=== PATIENT | female | born 1990 | race Caucasian/White ===

== ENCOUNTER 2022-05-05 12:39 | Emergency (ER) | payer OTHER, SELFPAY ==
--- NOTE | 2022-05-05 12:42 | ED.FEMALEGU ---
HPI - Female Genitourinary General Chief complaint: Urogenital-Female Stated complaint: Urinary Problem Time Seen by Provider: 05/05/22 12:42 History of Present Illness HPI Narrative: patient is a 31-year-old female who presents to the Urgent Care with complaints of a possible UTI. Patient states she has had decreased output, foul smelling urine and dark urine for approximately 3 weeks. Patient was last treated for UTI on January 04. Denies any nausea, vomiting or abdominal pain. Patient states that she had a fever last night and took ibuprofen. No other acute complaints. No acute distress noted. Patient aware of the plan of care. Some parts of this dictation were generated by voice recognition software and may contain typographical and/or grammatical inaccuracies. Related Data Allergies Allergy/AdvReac Type Severity Reaction Status Date / Time cefixime Allergy Unknown Rash Verified 08/23/15 14:45 ziprasidone Allergy Unknown Rash Verified 08/23/15 14:45 Review of Systems Review of Systems: CONSTITUTIONAL: Denies fever, chills, or sweats. EYES: Denies visual changes, redness, or discharge. ENT: Denies rhinorrhea, congestion, sore throat, or otalgia. CARDIOVASCULAR: Denies chest pain, palpitations, or edema. RESPIRATORY: Denies cough or dyspnea. GASTROINTESTINAL: Denies abdominal pain, nausea, vomiting, or diarrhea. GENITOURINARY: Reports of decreased urinary output, foul smelling and dark urine SKIN: Denies rash or itching. MUSCULOSKELETAL: Denies back pain, joint pain, or myalgia. NEUROLOGIC: Denies headache, numbness, or weakness. All other systems reviewed are negative, except as documented in HPI. PMFSH Comments At the time of my signature, I reviewed and agree with the nursing past medical, surgical, social, and family history. There is no relevant family history pertinent to the patient complaint. Exam Narrative: GENERAL: This is a well-nourished, well-developed patient, in no apparent distress. HEAD: normocephalic, atraumatic. EYES: PERRL. Sclera clear/white. Vision is grossly intact. EARS: External ears normalt. NOSE: External nose normal with no obvious nasal discharge, nares without redness, no rhinorrhea. THROAT: Mucous membranes moist NECK: Neck supple CARDIOVASCULAR: Regular rate and rhythm without murmurs, gallops, or rubs. RESPIRATORY: Clear to auscultation. Breath sounds equal bilaterally. No wheezes, rales, or rhonchi. GASTROINTESTINAL: Abdomen soft, non-tender, nondistended. Bowel sounds are active. SKIN: warm, intact with no suspicious lesions or rash, good texture and turgor. NEURO: awake, alert, and oriented to person, place and time. There were no obvious focal neurologic abnormalities. EXTREMITIES: No clubbing, cyanosis, or edema. BACK: negative bilateral CVA tenderness Course Course Level of Care: Express Care Visit Vital Signs Vital signs: Vital Signs Temperature 97.4 F L 05/05/22 12:52 Pulse Rate 98 05/05/22 12:52 Respiratory Rate 16 05/05/22 12:52 Blood Pressure 140/75 05/05/22 12:52 Pulse Oximetry 100 05/05/22 12:52 Oxygen Delivery Room Air 05/05/22 12:52 Temperature 97.4 F L 05/05/22 12:52 Pulse Rate 98 05/05/22 12:52 Respiratory Rate 16 05/05/22 12:52 Blood Pressure 140/75 05/05/22 12:52 Pulse Oximetry 100 05/05/22 12:52 Oxygen Delivery Room Air 05/05/22 12:52 reviewed MDM - Female Genitourinary MDM Narrative Medical decision making narrative: reviewed lab results with the patient. She is aware that urinalysis is not indicative of urinary tract infection. We will culture the urine and call if medication is necessary, based on culture results. Advised patient to increase her water intake and avoid sugar and caffeinated drinks. If she develops any increase in symptoms associated with nausea, vomiting, persistent fevers or abdominal pain -go to the emergency room. Continue to treat the fevers as needed with Tylenol/ ibuprof
[2022-05-05 12:52] VITALS: BP 140/75; PULSE 98; RESP 16; TEMP 36.3; O2SAT 100
== END 2022-05-05 13:14 | disposition home or self-care (01) ==
PROVIDERS: Emergency Provider Nurse Practitioner Family
DX: N39.0 Urinary tract infection, site not specified (principal); B96.20 Unspecified Escherichia coli [E. coli] as the cause of diseases classified elsewhere
CPT/HCPCS: 81003; 87077; 87086; 87186; 99203; G0463